=== PATIENT | female | born 1965 | race Caucasian/White ===

== ENCOUNTER 2018-12-22 05:27 | Day surgery (SDC) | payer BC, OTHER ==
[~2018-12-22] VITALS: Ht 167.6 cm; Wt 95.3 kg
--- NOTE | ~2018-12-22 | O ---
[facility] [place] [address] OPERATIVE REPORT Name: CAYDEN RUDOLPH Room #: 150-2 [facility].#: [id number] Admission: 12/22/18 Attend Phys: Jason Vega MD Discharge: Date of : 67 Report #: [id number] THIS REPORT FOR: //name// CC: Jason Bah DATE OF SERVICE: 12/22/2018 PREOPERATIVE DIAGNOSIS: Right ankle trimalleolar fracture. POSTOPERATIVE DIAGNOSIS: Right ankle trimalleolar fracture. PROCEDURE: Right ankle trimalleolar fracture open reduction and internal fixation. SURGEON: Jason Vega M.D. SCREEN PRINTING PASTER: Erika Danielson. ANESTHESIA: General. ESTIMATED BLOOD LOSS: Minimal. DRAINS: None. TOURNIQUET TIME: One hour. DESCRIPTION OF PROCEDURE: The patient brought to the operating room where she was placed under general anesthesia. Once under adequate general anesthesia, her right lower extremity was prepped and draped in sterile manner. The extremity was elevated, exsanguinated, tourniquet placed to 300 mmHg. A lateral incision over the high fibular fracture was made. This was dissected down through soft tissue to the fracture site. It was right overlying the superficial peroneal nerve, which was retracted out of the work area. Fracture was then subsequently identified and reduced and fixed into place with a 10-hole 1/3 tubular plate. Excellent fixation and alignment was achieved as verified under fluoroscopy, 3 screws proximal to the fracture and 4 screws distal to the fracture site. A 3 cm incision was then made over the medial malleolar fracture, which was subsequently identified and any hematoma was evacuated from this and the soft tissue was removed from the fracture site. The fracture was irrigated copiously. A bone reduction tenaculum was then placed across the fracture site and subsequent fixation was achieved with two 4.0 cannulated screws placed under fluoroscopic guidance. Excellent fixation and alignment was achieved in this manner. Once complete, the wounds were irrigated copiously. The ankle was stable. The syndesmosis was stable as verified under fluoroscopy. It was well reduced. The wounds were irrigated copiously and closed with 2-[address] [address] OPERATIVE REPORT Name: CAYDEN RUDOLPH Room #: 150-2 [facility].#: [id number] Admission: 12/22/18 Attend Phys: Jason Vega MD Discharge: Date of : 67 Report #: [id number] Vicryl in the subcutaneous tissues and mauro for the skin. The wounds were dressed with Xeroform, 4 x 4s, and sterile soft compressive dressing was placed. Tourniquet was let down approximately one hour. Toes were pink and warm with good capillary refill. There were no complications from the procedure. The patient tolerated the procedure well and went to the recovery room without incident. By: [id number] Jason Vega MD /conner
[~2018-12-22 05:27] MED LIST: HUMIRA20 MG/0.2 SUBQ; PERCOCET 7.5-31 EACH PO; RIZATRIPTAN10 M1 PO; TOPAMAX50 MG PO
[2018-12-22 11:53] LABS: HEMATOCRIT 36.7 % (37.0-47.0)
[2018-12-22 12:33] VITALS: BP 147/85
[2018-12-22] MEDS ORDERED: ASA5UEC PO (13:51)
[2018-12-22 14:45] VITALS: BP 147/85
== END 2018-12-22 15:40 | disposition home or self-care (01) ==
LOC: TBA 05:27 → OR 05:27 → TBA 05:28 → OR 10:00
PROVIDERS: Orthopaedic Surgery Foot and Ankle Surgery
DX: S82.851A Displaced trimalleolar fracture of right lower leg, initial encounter for closed fracture (principal); D64.9 Anemia, unspecified; F32.9 Major depressive disorder, single episode, unspecified; F41.9 Anxiety disorder, unspecified; G43.909 Migraine, unspecified, not intractable, without status migrainosus; Z87.442 Personal history of urinary calculi; Z88.8 Allergy status to other drugs, medicaments and biological substances; Z79.899 Other long term (current) drug therapy; Z79.82 Long term (current) use of aspirin; Z90.49 Acquired absence of other specified parts of digestive tract; Z98.890 Other specified postprocedural states; Z79.891 Long term (current) use of opiate analgesic; Z88.2 Allergy status to sulfonamides; X58.XXXA Exposure to other specified factors, initial encounter; Y93.89 Activity, other specified; Y92.89 Other specified places as the place of occurrence of the external cause; Y99.8 Other external cause status
CPT/HCPCS: 50010; 50101; 50313; 50386; 51122; 51131; 51412; 52120; 56524; 56525; 56667; 57091; 57180; 62110; 62900; 70005

== ENCOUNTER 2019-06-03 05:24 | Day surgery (SDC) | payer BC, OTHER ==
[~2019-06-03] VITALS: Ht 167.6 cm; Wt 110.7 kg
[~2019-06-03 05:24] MED LIST changes: +ASA5UEC PO
[2019-06-03 08:19] LABS: HEMOGLOBIN 11.9 gm/dL (12.0-15.0); MCH 22.3 pg (26.0-34.0); MCHC 32.1 g/dL (28.0-37.0); MCV 69.4 fL (80.0-100.0); RBC 5.33 mil/uL (4.20-5.00); RDW 17.6 % (10.5-14.5)
[2019-06-03 08:28] VITALS: BP 162/82
[2019-06-03] MEDS ORDERED: PERCOCET 7.5-31 EACH PO (11:11)
[2019-06-03 11:38] VITALS: BP 162/82
--- NOTE | 2019-06-08 14:35 | O ---
[facility] [place] [address] OPERATIVE REPORT Name: CAYDEN RUDOLPH Room #: DEP [facility]..#: [id number] Admission: 06/03/19 ������������������ Attend Phys: Jason Vega MD Discharge: 06/03/19 ������������������ Date of : 67 Report #: [id number] THIS REPORT FOR: //name// CC: Jason Bah DATE OF SERVICE: 06/03/2019 PREOPERATIVE DIAGNOSIS: Retained hardware, right ankle. POSTOPERATIVE DIAGNOSIS: Retained hardware, right ankle. PROCEDURE: Right ankle medial malleolar hardware removal. SURGEON: Jason Vega M.D. ANESTHESIA: General. ESTIMATED BLOOD LOSS: Minimal. DRAINS: No drains. TOURNIQUET TIME: 10 minutes. DESCRIPTION OF PROCEDURE: The patient brought to the operating room where she was placed under general anesthesia. Once under adequate general anesthesia, her right lower extremity was prepped and draped in sterile manner. The extremity was elevated, exsanguinated, tourniquet placed to 300 mmHg. Utilizing fluoroscopy for guidance, a guidewire for the 4.0 cannulated screws was then utilized and placed down the shaft of the more posterior screw. A small stab incision was made over this and the screw was then removed through this small stab incision. The guidewire was then directed anteriorly and the anterior screw was removed in a similar fashion through the same incision. The wound was then irrigated copiously and closed with mauro for the skin. The wound was dressed with Xeroform, 4 x 4s, and a sterile soft compressive dressing was placed. Tourniquet was let down at 10 minutes. Toes were pink and warm with good capillary refill. There were no complications from the procedure. The patient tolerated the procedure well and went to the recovery room without incident. ��������������������������������������������� <ELECTRONICALLY SIGNED> ���������������������������������������� By: Jason Vega MD ��������������������������������������������� 06/08/19 1435 [id number] Jason Vega MD /nt
== END 2019-06-03 12:30 | disposition home or self-care (01) ==
LOC: TBA 05:24 → OR 05:24 → TBA 05:25 → OR 07:40
PROVIDERS: Orthopaedic Surgery Foot and Ankle Surgery
DX: T84.84XA Pain due to internal orthopedic prosthetic devices, implants and grafts, initial encounter (principal); M25.571 Pain in right ankle and joints of right foot; G43.909 Migraine, unspecified, not intractable, without status migrainosus; F32.9 Major depressive disorder, single episode, unspecified; F41.9 Anxiety disorder, unspecified; M06.9 Rheumatoid arthritis, unspecified; D64.9 Anemia, unspecified; Z87.442 Personal history of urinary calculi; Z88.8 Allergy status to other drugs, medicaments and biological substances; Z98.890 Other specified postprocedural states; Z79.82 Long term (current) use of aspirin; Z79.899 Other long term (current) drug therapy; Z90.49 Acquired absence of other specified parts of digestive tract; Z88.2 Allergy status to sulfonamides; Y83.8 Other surgical procedures as the cause of abnormal reaction of the patient, or of later complication, without mention of misadventure at the time of the procedure
CPT/HCPCS: 50010; 50101; 50386; 51412; 56526; 57091; 57180; 62110; 62900; 70005

== ENCOUNTER → 2020-12-16 | Outpatient (CLI) | payer BC, OTHER | LOC: LAB 10:56 | PROVIDERS: ATTEND Anesthesiology | DX: Z01.812 Encounter for preprocedural laboratory examination (principal); Z20.822 Contact with and (suspected) exposure to COVID-19 ==